=== PATIENT | male | born 1965 | race Caucasian/White ===

== ENCOUNTER 2025-03-17 08:14 | Outpatient (REF) | payer MEDICAID, SELFPAY ==
--- OUTSIDE RECORDS SUMMARY | 2025-03-17 08:31 | XMS_ITS | Clinical Summary ---
Author Organization [employer] Address [address] [place] [address] Care Team Providers Care Paper Cone Maker Name Role Phone Ana Kolb MD Primary Care Provider + Allergies No known active allergies Medications * This document contains information received from the source organization and may not represent a complete record from that organization. Blood Pressure Monitoring (Blood Pressure Cuff) misc Use daily as prescribed 1 each 03/01/20 25 Active FREESTYLE LITE test strip Use to test blood sugar 1x times daily 100 each 12 5 10:18 AM EST 03/01/20 25 026 Active Lancets misc Use to test blood sugar 1x times daily 100 each 5 10:18 AM EST 03/01/20 25 Active Alcohol Swabs 70 % pads Use to test blood sugar 1x times daily 100 each 5 10:18 AM EST 03/01/20 25 Active Blood Glucose Monitoring Suppl (FreeStyle [place] Lite) w/Device kit Use to test blood sugar 1x times daily 1 kit 5 10:18 AM EST 03/01/20 25 Active insulin syringe-needle U-100 (BD Insulin Syringe Ultrafine) 31G X 5/16 0.3 mL misc Use as instructed 100 each 12 03/01/20 25 026 Active Insulin Glargine Solostar 100 UNIT/ML solution pen-injector Inject 20 Units under the skin at bedtime. 15 mL 11 5 10:18 AM EST 03/01/20 25 Active lisinopril 20 MG tablet Take 1 tablet (20 mg) by mouth Once per day. 90 tablet 3 5 10:18 AM EST 03/01/20 25 026 Active pravastatin (Pravachol) 40 MG tablet Take 1 tablet (40 mg) by mouth Once per day. 90 tablet 1 5 10:18 AM EST 03/01/20 25 Active OLANZapine (ZyPREXA) 15 MG tablet Take 1 tablet (15 mg) by mouth at bedtime. 90 tablet 5 10:18 AM EST 03/01/20 25 Active allopurinol (Zyloprim) 300 MG tablet Take 1 tablet (300 mg) by mouth Once per day. 90 tablet 1 5 10:18 AM EST 03/01/20 25 Active gabapentin (Neurontin) 800 MG tablet Take 1 tablet (800 mg) by mouth 2 times daily. 180 tablet 1 5 10:18 AM EST 03/01/20 25 Active terazosin (Hytrin) 2 MG capsule Take 1 capsule (2 mg) by mouth at bedtime. 90 capsule 5 10:18 AM EST 03/01/20 25 Active cilostazol (Pletal) 100 MG tablet Take 1 tablet (100 mg) by mouth Once per day. 90 tablet 5 10:18 AM EST 03/01/20 25 Active cilostazol (Pletal) 100 MG tablet Take 1 tablet (100 mg) by mouth 2 times daily. 60 tablet 11 03/01/20 25 025 Discontinued(Re order (will not trigger notification to Pharmacy)) Active Problems Problem Noted Date Diagnosed Date Moderate episode of recurren t major depressive disorder (CMS/HCC) 03/11/2025 Assessment & Plan (03/11/2025 3:15 PM EST): Has history depression with psychotic features in the past, doing better on meds, will have him evaluate by . Will lower Zyprexa to 15mg at bedtime to decrease daytime somnolence. He may need an SSRI> He feels safe at home and is able to reach out for safety. Hyperlipidemia 03/01/2025 Assessment & Plan (03/01/2025 3:32 PM EST): Continue Pravastatin, order lipids. Recommended moderate amount of exercise and increase consumption of fruit, vegetables, fish and high fiber foods. Should decrease consumption of highly saturated fats or trans fats. Hyperuricemia 03/01/2025 Assessment & Plan (03/01/2025 3:29 PM EST): On allopurinol Will restart Allopurinol 300mg and recheck UA in 3-6m Primary hypertension 03/01/2025 Assessment & Plan (03/01/2025 3:32 PM EST): Controlled. Compliant w/meds Continue lisinopril Counseled re low salt diet/increase moderate physical activity. Check home BP BIW and prn CP/KIRBY/MOYER Non smoking patient. FU in 1mo Type 2 diabetes mellitus wit h hyperglycemia, with long-term current use of insulin 03/01/2025 Assessment & Plan (03/01/2025 3:27 PM EST): - Uncontrolled, A1c not at goal. Currently using 70/30 insulin, 20 units in the morning and 10 units at night. - Initiate Lantus 15 units (currently getting approx 21U of NPH) daily in the evening with dinner, titrate to 20 units after 2-3 days if glucose remains above 200 mg/dL, keep same dose until next appointment. - Bring glucose meter to next visit for review. Ordered blood tests for diabetes monitoring. Counseled re more frequent low calorie/carb meals. Check fgstk 1x daily Encouraged physical activity as tolerated. FU in 1-2 months. Refer to ophthalmology/eye clinic Foot examination is normal, no diabetic neuropathy sxs at this time, will continue gabapentin Influenza vax today. Diabetic polyneuropathy asso ciated with type 2 diabetes mellitus 03/01/2025 Assessment & Plan (03/01/2025 3:30 PM EST): On gabapentin, doing better. He has mostly LE/feet numbness, currently asxs. Continue Gabapentin and encouraged tight control of DM Mild intermittent asthma without complication Assessment & Plan (03/01/2025 3:31 PM EST): Controlled. DC Flovent as he's taking it PRN only Rx albuterol to take on a PRN basis only. Influenza Vax today. Lower urinary tract symptoms (LUTS) 03/01/2025 Assessment & Plan (03/01/2025 3:28 PM EST): Doing well on Terazosin. PVD (peripheral vascular disease) 03/01/2025 Assessment & Plan (03/01/2025 3:34 PM EST): On Cilostazol, doing well, no change in meds. Advised re tight control of DM, HLD and hypertension. 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 FU prn. Resolved Problems Problem Noted Date Diagnosed Date Resolved Date Major depressive disorder wi th psychotic features (CMS/HCC) 03/01/2025 03/11/2025 Assessment & Plan (03/01/2025 3:36 PM EST): Has history depression, will have him evaluate by . Will lower Zyprexa to 15mg at bedtime to decrease daytime somnolence. He may need an SSRI> He feels safe at home and is able to reach out for safety. Encounters * This document contains information received from the source organization and may not represent a complete record from that organization. Date Type Department Care Team Description 03/11/2025 Travel 03/02/2025 Population Health Risk Score Community [facility] ([facility]) Department [address] [id number] Provider, Population Health Generic 03/01/2025 9:15 AM EST Office Visit [facility] [address] [place] [address] Ana Kolb MD Type 2 diabetes mellitus with hyperglycemia, with long-term current use of insulin (HCC) (Primary Dx); Diabetic polyneuropathy associated with type 2 diabetes mellitus (HCC); Hyperlipidemia, unspecified hyperlipidemia type; Hyperuricemia; Primary hypertension; Mild intermittent asthma without complication; Lower urinary tract symptoms (LUTS); Acquired arm deformity, right; PVD (peripheral vascular disease); Encounter for immunization; Screen for STD (sexually transmitted disease); Major depressive disorder with psychotic features (CMS/HCC) (HCC); Moderate episode of recurrent major depressive disorder (CMS/HCC) (HCC) 03/01/2025 Travel 02/28/2025 Telephone [facility] [address] [place] [address] [phone] Leilani Burr DO Chart Prep 02/15/2025 Patient Outreach [facility] [address] [place] [address] Ana Kolb MD Pre-visit Planning (SDOH screening negative and tobacco screening negative) from Last 3 Months Immunizations Immunization Administration Dates Next Due Influenza, seasonal, injectable, preservative fr ee 03/01/2025 Social History Tobacco Use Types Packs/Day Years Used Date Smoking Tobacco: Former Cigarettes Passive Smoke Exposure: Never Smokeless Tobacco: Never Tobacco Cessation:Counseling Given: Not Answered Alcohol Answer Date Recorded How often do you have a drink containing alcohol ? 0 03/01/2025 How many drinks containing a lcohol do you have on a typical day when you are drinking? 0 03/01/2025 How often do you have six or more drinks on one occasion? 0 03/01/2025 Depression Answer Date Recorded Patient Health Questionnaire-9 Score 5 03/01/2025 Patient Health Questionnaire-9 Score 5 03/01/2025 Last PHQ-9: Questionnaire Data Not on file 1 05/02/2024 Housing Stability Answer Date Recorded What is your housing situation today? I have cytnhia merritt 02/15/[address] you li ve. Do you have problems with any of the following? None of the above 02/15/2025 Food Insecurity Answer Date Recorded Within the past 12 months, y ou worried that your food would run out before you got money to buy more: Never True 02/15/2025 Within the past 12 months,th e food you bought just didn't last and you didn't have enough money to get more: Never True Transportation Answer Date Recorded In the past 12 months, has l ack of transportation kept you from medical appts, meetings, work or from getting things needed for daily living? No 02/15/2025 Utilities Answer Date Recorded In the past 12 months, has t he electric, gas, oil or water company threatened to shut off services in your home? No 02/15/2025 Depression Answer Date Recorded Patient Health Questionnaire-2 Score 2 03/01/2025 Internet Access Answer Date Recorded Internet Access Q1 No 02/15/2025 Internet Access Q2 I do not want or need it 01/29 Sex and Gender Information Value Date Recorded Sex Assigned at Male 01/12/2025 12:28 PM EDT Legal Sex Male 12:46 PM EDT Gender Identity Male 01/12/2025 12:28 PM EDT Sexual Orientation Straight 01/12/2025 12 :28 PM EDT Last Filed Vital Signs Vital Sign Reading Time Taken Comments Blood Pressure 154/82 03/01/2025 9:05 AM EST Pulse 88 03/01/2025 9:05 AM EST Temperature 36.3 C (97.3 F) 03/01/2025 9:05 AM EST Respiratory Rate 12 03/01/2025 9:05 AM EST Oxygen Saturation - - Inhaled Oxygen Concentration - - Weight 97.3 kg (214 lb 9.6 oz) 03/01/2025 9:05 A M EST Height 177.8 cm (5' 10 ) 03/01/2025 9:05 AM EST Body Mass Index 30.79 03/01/2025 9:05 AM EST Plan of Treatment Upcoming Encounters Date Type Department Care Team (Late st Contact Info) Description 04/27/2025 11:15 AM EST Office Visit [facility] [address] [place] [address] Ana Kolb MD [address] [place] [address] 07/07/2025 2:30 PM EDT Office Visit [facility] [address] [place] [address] Yazmin Izquierdo, OD [address] [place] [address] Health Maintenance Due Date Last Done Comments CT Colonography 1965 Colonoscopy 1965 Colorectal Cancer Screening 1965 FIT DNA/Cologuard 1965 FIT 1965 FOBT 1965 HIV Screening 1965 Lipid Panel 1965 Sigmoidoscopy 1965 Disability Screening 1965 Diabetes: Foot Exam 1975 Eye Exam 1975 Hepatitis C Screening 1983 DTaP/Tdap/Td Vaccines (1 - Tdap) 1984 Diabetes: Urine Protein Screening 1984 Hepatitis B Vaccines (1 of 3 - 19+ 3-dose series) 1984 Pneumococcal Vaccine: 50+ Years (1 of 2 - PCV) 1984 RSV Patients and Patients Aged 60 years or older (1 - Risk 50-74 years 1-dose series) 2015 Zoster Vaccines (1 of 2) 2015 COVID-19 Vaccine (1 - 2024-2 6 season) 2024 Diabetes: Hemoglobin A1C 05/30/2025 03/01/2025 SDOH Screening 02/15/2026 02/15/2025 Alcohol/Substance Use Screening 03/01/2026 03/01/2025 Depression Screening 03/01/2026 03/01/2025, 03/01/2025 Tobacco Screening 03/01/2026 03/01/2025 Influenza Vaccine Completed 03/01/2025 HIB Vaccines Aged Out No longer eligi ble based on patient's age to complete this topic HPV Vaccines Aged Out No longer eligi ble based on patient's age to complete this topic Hepatitis A Vaccines Aged Out No long er eligible based on patient's age to complete this topic IPV Vaccines Aged Out No longer eligi ble based on patient's age to complete this topic Meningococcal B Vaccine Aged Out No l onger eligible based on patient's age to complete this topic Meningococcal Vaccine Aged Out No marlee titi eligible based on patient's age to complete this topic RSV under 20 months Aged Out No longe r eligible based on patient's age to complete this topic Rotavirus Vaccines Aged Out No longer eligible based on patient's age to complete this topic Goals Goal Patient Goal Type Associated Problems Recent Progress Patient-Stated? Author Help patients manage their type 2 diabetes Care Plan Help patients manage their type 2 diabetes Ana Pastor MD Patient has chronic kidney disease Care Plan Patient has chronic kidney disease No Ana Kolb MD Patient has diabetic neuropathy Care Plan Patient has diabetic neuropathy No Ana Kolb MD Weekly blood pressure task Care Plan Weekly blood pressure task No Ana Kolb MD Weekly blood pressure task Care Plan Weekly blood pressure task No Lara Escamilla LICSW Patient has chronic kidney disease Care Plan Patient has chronic kidney disease No Lara Escamilla LICSW Patient has diabetic neuropathy Care Plan Patient has diabetic neuropathy No Lara Escamilla LICSW Procedures Procedure Name Priority Date/Time Associated Diagnosis Comments POCT GLYCATED HEMOGLOBIN, TOTAL Routine 03/01/2025 9:35 AM EST Type 2 diabetes mellitus with hyperglycemia, with long-term current use of insulin (HCC) Diabetic polyneuropathy associated with type 2 diabetes mellitus (HCC) POCT GLUCOSE Routine 03/01/2025 9:27 AM EST Type 2 diabetes mellitus with hyperglycemia, with long-term current use of insulin (HCC) Diabetic polyneuropathy associated with type 2 diabetes mellitus (HCC) from Last 3 Months Results * (ABNORMAL) POCT Hgb A1c (03/01/2025 9:35 AM EST) Hemoglobin A1C 8.7(A) 4.0 - 5.7 % QC Media Lot # [id number] Lot# Expiration Date Blood 03/01/2025 9:35 AM EST Ana Kolb MD POINT OF CARE TEST ENTER /EDIT ORDERABLES Final Result * (ABNORMAL) POCT Glucose (03/01/2025 9:27 AM EST) Glucose Blood, POC 311(A) 60 - 200 mg/dL QC Media Lot # [id number] Lot# Expiration Date Blood Capillary blood specimen / Unknown 03/01/2025 9:27 AM EST Ana Kolb MD POINT OF CARE TEST ENTER /EDIT ORDERABLES Final Result from Last 3 Months Additional Health Concerns Active Problems Noted Date Diagnosed Date Help patients manage their type 2 diabetes 03/01 Patient has chronic kidney disease 03/01/2025 Patient has diabetic neuropathy 03/01/2025 Weekly blood pressure task 03/01/2025 Weekly blood pressure task 03/01/2025 Patient has chronic kidney disease 03/01/2025 Patient has diabetic neuropathy 03/01/2025 Insurance [facility] C3 Care Teams Paper Cone Maker Relationship Specialty Start Date End Date Ana Kolb MD [address] [place] [address] PCP - General Internal Medicine 03/01/25
[2025-03-17 11:10] LABS: MANUAL DIFF FLAG NO
[2025-03-17 11:32] LABS: Hematocrit 41.0 % (42.0-52.0); Hemoglobin 13.6 g/dl (14.0-18.0); Imm Gran Abs Auto 0.01 X10*3/uL (0.00-0.03); Imm Gran Pct Auto 0.2 % (0.0-0.4); Lymphocytes Absolute Auto 2.5 X10*3/uL (1.2-4.9); Mean Corpuscular HGB Conc 33.2 g/dl (31.0-36.0); Mean Corpuscular Hemoglobin 28.7 pg (27.0-33.0); Mean Corpuscular Volume 86.5 fL (80.0-98.0); NRBC Abs Auto 0.000 X10*3/uL (0.0-0.012); NRBC Pct Auto 0.0 /100WBC (0.0-0.2); Platelet Count 294 X10*3/uL (160-400); Red Blood Count 4.74 X10*6/uL (4.60-5.80); White Blood Count 5.1 X10*3/uL (4.8-10.8)
[2025-03-17 12:15] LABS: Alanine Aminotransferase 28 U/L (0-40); Albumin Level 4.5 g/dL (3.5-5.0); Alkaline Phosphatase 102 U/L (39-117); Anion Gap 11 (12-20); Aspartate Amino Transferase 25 U/L (5-37); Blood Urea Nitrogen 15 mg/dL (9-16); Calcium 9.1 mg/dL (8.4-10.2); Carbon Dioxide 28 mmol/L (22-29); Chloride 106 mmol/L (96-108); Cholesterol 157 mg/dL (<200); Estimated Glomerular Filt Rate > 60; HDL Cholesterol 31 mg/dL (>40); Potassium 3.7 mmol/L (3.3-5.1); Sodium 141 mmol/L (135-145); Total Protein 7.3 g/dL (6.5-8.0); Triglycerides 235 mg/dL (<150)
[2025-03-17 13:16] LABS: Reflex LDLD? No
[2025-03-17 13:38] LABS: Syphilis Screen Nonreactive (Nonreactive)
[2025-03-17 13:52] LABS: HBS Num1 0.00 mIU/mL (0-7.99); HBc Num1 0.07 S/CO (0.00-0.79); HBsAGNum1 0.36 S/CO (0.00-0.99); HIV Num 1 0.06 S/CO (0.00-0.99); Hepatitis A Antibody IgM 0.48 Index (0-0.79); Hepatitis B Surface Antigen Negative (Negative); ~HepC Num1 0.11 S/CO (0.00-0.79); ~Hepatitis A Antibody IgM Nonreactive (Nonreactive); ~Hepatitis B Surface Antibody NONREACTIVE (Nonreactive); ~Hepatitis C Antibody Nonreactive (Nonreactive)
== END 2025-03-17 08:15 | disposition home or self-care (01) ==
LOC: HO.HHCL 08:14
PROVIDERS: Internal Medicine; PCP Internal Medicine; Visit Provider Internal Medicine
DX: E11.42 Type 2 diabetes mellitus with diabetic polyneuropathy (principal); E78.5 Hyperlipidemia, unspecified; E11.65 Type 2 diabetes mellitus with hyperglycemia; R39.9 Unspecified symptoms and signs involving the genitourinary system; Z79.4 Long term (current) use of insulin; Z11.3 Encounter for screening for infections with a predominantly sexual mode of transmission; Z11.4 Encounter for screening for human immunodeficiency virus [HIV]; Z11.59 Encounter for screening for other viral diseases
CPT/HCPCS: 36415; 80053; 80061; 84443; 85025; 86704; 86706; 86709; 86780; 86803; 87340; 87389